=== PATIENT | female | born 1985 | race African-American/Black ===

== ENCOUNTER 2022-10-28 18:35 | Emergency (ER) | payer MEDICAID ==
[~2022-10-28] VITALS: Ht 175.3 cm; Wt 82.0 kg
[2022-10-28 18:37] VITALS: BP 117/76
[2022-10-28] MEDS ORDERED: DIPHENHYDRAMINE 50MG/ML VIAL IV ONE (19:15)
[2022-10-28] MEDS ORDERED: SODIUM CHLORIDE 0.9% 1,000 ML IV ONE (19:15)
[2022-10-28 19:42] LABS: *AMPHETAMINES SCREEN URINE NEGATIVE (NEGATIVE); *BARBITURATES SCREEN URINE NEGATIVE (NEGATIVE); *BENZODIAZEPINES SCREEN URINE NEGATIVE (NEGATIVE); *COCAINE SCREEN URINE NEGATIVE (NEGATIVE); METHADONE URINE SCREEN NEGATIVE (NEGATIVE); OPIATES URINE SCREEN NEGATIVE (NEGATIVE); PHENCYCLIDINE URINE SCREEN NEGATIVE (NEGATIVE)
[2022-10-28 19:46] LABS: CANNABINOID URINE SCREEN PRESUMTIVE POSITIVE (NEGATIVE)
[2022-10-28 19:51] LABS: BASOPHILS % 0.5 % (0.0-2.0); EOSINOPHILS % 1.1 % (0.0-5.0); HEMATOCRIT. 38.1 % (36.0-48.0); HEMOGLOBIN. 12.9 g/dL (12.0-16.0); LYMPHOCYTES % 16.3 % (20.0-50.0); MEAN CORPUSCULAR HEMOGLOBIN 30.1 pg (28.0-32.0); MEAN CORPUSCULAR VOLUME 88.7 fL (81.0-99.0); MEAN PLATELET VOLUME 8.8 fl (7.4-10.4); MONOCYTES % 7.1 % (2.0-8.0); PLATELET 256 x1000/uL (130-400); RED CELL DISTRIBUTION WIDTH 12.6 % (11.6-14.6)
[2022-10-28 20:05] LABS: CHLORIDE 108 mEq/L (98-107)
[2022-10-28 20:07] LABS: HCG SCREEN NEGATIVE
[2022-10-28 20:14] LABS: ETHANOL BLOOD < 10 mg/dL
[2022-10-28] MEDS ORDERED: DIPHENHYDRAMINE 50MG/ML VIAL IV NR (21:15)
== END 2022-10-28 21:29 | disposition home or self-care (01) ==
LOC: ER 18:45
DX: R41.82 Altered mental status, unspecified (principal); Z88.0 Allergy status to penicillin; F12.10 Cannabis abuse, uncomplicated; T40.715A Adverse effect of cannabis, initial encounter; Y92.89 Other specified places as the place of occurrence of the external cause
CPT/HCPCS: 36415; 80053; 80305; 80307; 80320; 80329; 81025; 82962; 84484; 84703; 85025; 93005; 99284; J1200; J7030; G0480